=== PATIENT | male | born 1950 | race Caucasian/White ===

== ENCOUNTER 2017-01-05 17:09 | Emergency (ER) | payer BC ==
[2017-01-05 17:29] VITALS: BP 149/91
--- NOTE | 2017-01-05 18:27 | ED ---
Throat Pain/Nasal Congestion - HPI Summary HPI Summary: Patient presents to ED with CC of left eye conjunctiva redness, blurred vision, fixed pupil, halos around lights, tints of colors in the distances which are describes as halos and pain. He has had some worsening blurry vision for a few months and was seen by an analysis specialist in [facility] 3 weeks ago. He was tested negative for glaucoma, but diagnosed with a cataract. Then over the last 4 days , the blurry vision increased and now is having the previously mentioned symptoms. He is a [place] and notes to some intermittent hay fever reaction in the conjunctiva, but states this feels different. Otherwise healthy. - History of Current Complaint Chief Complaint: EDEyeProblem Time Seen by Provider: 01/05/17 17:35 Hx Obtained From: Patient Onset/Duration: Gradual Onset Severity: Worse Since: - 4 days ago Associated Signs And Symptoms: Positive: Negative Related History: Seasonal Allergies - Epiglottits Risk Factors Epiglottis Risk Factors: Negative - Allergies/Home Medications Allergies/Adverse Reactions: Allergies Allergy/AdvReac Type Severity Reaction Status Date / Time No Known Allergies Allergy Verified 01/05/17 17:30 PMH/Surg Hx/FS Hx/Imm Hx Previously Healthy: Yes - Immunization History Hx Pertussis Vaccination: No Immunizations Up to Date: Unable to Obtain/Confirm Infectious Disease History: Yes Infectious Disease History: Denies: Traveled Outside the [place] in Last 30 Days - Social History Occupation: Employed Full-time Lives: With Family Alcohol Use: UNABLE TO ASSESS, PT LEFT ED TO EY DOCTOR Hx Substance Use: No Substance Use Type: Reports: None, Other Substance Use Comment - Amount & Last Used: UNABLE TO ASSESS. PT LEFT FOR EYE APPOINTMENT Smoking Status (MU): Unknown if Ever Smoked Review of Systems Constitutional: Negative Positive: Photophobia, Blurred Vision, Erythema ENT: Negative Respiratory: Negative Genitourinary: Negative Positive: no symptoms reported, see HPI Skin: Negative Neurological: Negative All Other Systems Reviewed And Are Negative: Yes Physical Exam Triage Information Reviewed: Yes Vital Signs On Initial Exam: Initial Vitals Temp Pulse Resp BP Pulse Ox 98.4 F 62 18 149/91 96 01/05/17 17:24 01/05/17 17:24 01/05/17 17:24 01/05/17 17:24 01/05/17 17:24 Vital Signs Reviewed: Yes Appearance: Positive: Well-Appearing, No Pain Distress, Well-Nourished Skin: Positive: Warm, Skin Color Reflects Adequate Perfusion Head/Face: Positive: Normal Head/Face Inspection Eyes: Positive: Conjunctiva Inflammed, Other: - fixed pupil - miosis Neck: Positive: Supple, No Lymphadenopathy Respiratory/Lung Sounds: Positive: Clear to Auscultation, Breath Sounds Present Cardiovascular: Positive: Normal, RRR, Pulses are Symmetrical in both Upper and Lower Extremities Musculoskeletal: Positive: Normal, Strength/ROM Intact Neurological: Positive: Sensory/Motor Intact, Alert, Oriented to Person Place, Time Psychiatric: Positive: Normal AVPU Assessment: Alert - Donna Coma Scale Best Eye Response: 4 - Spontaneous Best Motor Response: 6 - Obeys Commands Best Verbal Response: 5 - Oriented Diagnostics - Vital Signs Vital Signs Temp Pulse Resp BP Pulse Ox 01/05/17 17:49 98.4 F 62 18 149/91 96 01/05/17 17:24 98.4 F 62 18 149/91 96 - Laboratory Lab Statement: Any lab studies that have been ordered have been reviewed, and results considered in the medical decision making process. EENT Course/Dx - Course Course Of Treatment: [facility] arrives from [facility]. Patient assessed for AACG. Left eye conjunctiva redness, blurred vision, fixed pupil, halos around lights, tints of colors in the distances which are describes as halos and pain. Spoke with Dr. Bran at 6pm who agreed to see patient at 6:30p in office. - Differential Diagnoses Differential Diagnoses: Conjunctivitis, Corneal Abrasion, Glaucoma - Diagnoses Provider Diagnoses: Cloudy vision Discharge - Discharge Plan Condition: Stable Disposition: HOME Referrals: Leo Bran MD [Medical Doctor] - Mingo Reilly MD [Primary Care Provider] - Additional Instructions: Follow up with Dr. Bran at 6:30p in his office.
== END 2017-01-05 18:08 | disposition home or self-care (01) ==
LOC: ED 17:09
DX: H53.8 Other visual disturbances (principal); H53.149 Visual discomfort, unspecified; L53.9 Erythematous condition, unspecified
CPT/HCPCS: 99281

== ENCOUNTER 2017-01-08 11:04 | Day surgery (SDC) | payer BC ==
[2017-01-08] MEDS ORDERED: Lidocaine 2% PF * 5 ML VIAL ONE (12:19)
[2017-01-08] MEDS ORDERED: Midazolam* 1 MG/ML 2 ML VIAL (2 MG) ONE ×2 (12:19→13:29)
[2017-01-08] MEDS ORDERED: Propofol* 10 MG/ML 20 ML BTL IV PUSH ONE (12:19)
[2017-01-08] MEDS ORDERED: fentaNYL* 50 MCG/ML 2 ML VIAL (100 MCG VIAL) ONE (12:19)
[2017-01-08] MEDS ORDERED: Buffered Lidocaine 0.9% SYRIN* 5 ML/SYR SYRINGE INTRADERM ONE (12:22)
[2017-01-08] MEDS ORDERED: Lidocaine 1% INJ* 10 MG/ML 30 ML SDV ONE (12:36)
[2017-01-08 14:07] VITALS: BP 129/74
--- NOTE | 2017-01-09 02:02 | OP ---
DATE OF OPERATION: 01/08/17 - [facility] DATE OF : 54 SURGEON: Leo Bran MD AUDIOLOGY ASSISTANT: None. ANESTHESIOLOGIST: Dr. Noriega ANESTHESIA: Retrobulbar and MAC. PRE-OP DIAGNOSES: Retained intraocular foreign body, iris root tear, corneal edema, cataract. POST-OP DIAGNOSES: Retained intraocular foreign body, iris root tear, corneal edema, cataract. OPERATIVE PROCEDURE: Removal of intraocular foreign body and repair of iris root tear. COMPLICATIONS: None. BLOOD LOSS: Minimal. DESCRIPTION OF PROCEDURE: The patient was brought to the operating room and received a small amount of intravenous sedation. A drop of tetracaine was placed into his left eye. The lower eyelid skin was cleaned with alcohol and approximately 2.5 cc of 1% lidocaine without epinephrine was administered through Mckeon retrobulbar needle into the muscle cone. The patient was subsequently prepped and draped in the usual sterile fashion for ophthalmic surgery and attention was directed to the left eye where a speculum was placed. Under the microscope, one could view a hazy outline of a foreign body in the inferonasal aspect of the angle in the anterior chamber embedded into the iris with some retroillumination of the iris root in that area. The cornea was hazy and a moderate nuclear sclerotic and posterior subcapsular cataract was present. A paracentesis was created at the 4:30 position and 0.1 cc of 1% preservative-free lidocaine was injected into the anterior chamber followed by DisCoVisc. A 2.75-mm keratome was used to create a triplanar clear corneal incision at approximately the 1:30 position. DisCoVisc on a cannula was used to try and manipulate the foreign body out of the angle, but it was encapsulated into place. A Utrata forceps was introduced through the wound across the anterior chamber and the foreign body was gently grabbed and pulled across the eye out through the wound. Care was taken to avoid traumatizing the iris as much as possible during this aspect of the procedure. Viscoelastic was then reintroduced into the anterior chamber to view the iris. A iris defect in the inferonasal quadrant was noted and measured approximately 2 mm in diameter beginning at the root of the iris. There was no further foreign body noted. It was decided that it would be prudent to try and close this defect and prevent polycoria with resultant monocular diplopia or glare. So, an inferonasal conjunctival peritomy was performed with gentle cauterization as needed. A crescent blade was used to create a V-shaped partial thickness scleral flap with its base at the limbus and the area of the iris defect. A # 30 gauge needle was introduced through the sclera under the flap into the angle. Through the wound, a double armed 9-0 Prolene with a straight needle was introduced. One needle was introduced sequentially through the central lip of the iris defect and into the lumen of the awaiting needle. The needle and 25 -gauge needle were removed peripherally as a unit. The 25-gauge needle was taken away and the Prolene needle was pulled through fully. This process was repeated with the other arm of the double-armed Prolene needle. The needles were trimmed and Prolene was tied such that it pulled the iris defect close to the iris root. The Prolene knot was trimmed short and the flap was used to cover the knot. Interrupted 10-0 nylon was used to close the flap. 6-0 gut was used to close the conjunctival peritomy. Attention was introduced into the eye again where viscoelastic was removed using irrigation and aspiration. BSS on a cannula was used to hydrate the corneal stroma and seal the wound. At the end of the case, the pupil was slightly teardrop peaked toward the area of repair and measured approximately 2.5 x 3 mm. The anterior chamber was deep and formed. The wound was watertight. The eye pressure appeared normal. The cornea was still somewhat hazy and the cataract remained. The conjunctiva was well closed with no active bleeding. The speculum was removed from the eye. Topical Maxitrol ointment was placed in the eye followed by a patch and a shield. The patient was sent to recovery room with postoperative instructions and followup appointment given. As per preoperative discussion, a plan to remove the cataract in the future was discussed. [id number]/[facility] #: [id number] JULISSA
[2017-01-09] MEDS ORDERED: Acetaminophen TAB* 325 MG PO PRN (05:00)
== END 2017-01-08 14:12 | disposition home or self-care (01) ==
LOC: OREAST 11:04
PROVIDERS: ATTEND Ophthalmology
DX: S05.52XA Penetrating wound with foreign body of left eyeball, initial encounter (principal); W45.8XXA Other foreign body or object entering through skin, initial encounter; Y92.9 Unspecified place or not applicable; I10 Essential (primary) hypertension; I35.0 Nonrheumatic aortic (valve) stenosis
CPT/HCPCS: 88300; J2001; J2250; J2704; J3010

== ENCOUNTER 2017-05-14 12:08 | Day surgery (SDC) | payer BC ==
[~2017-05-14 12:08] MED LIST: Acetaminophen TAB* 325 MG PO PRN; Buffered Lidocaine 0.9% SYRIN* 5 ML/SYR SYRINGE INTRADERM ONE; Cyclopentolate 1% OPTH.SOL* 2 ML BTL ONE; Ketorolac 0.5% OPHTH (NF) 0.5 % 5 ML BTL ONE; Lidocaine 1% MPF* 2 ML VIAL ONE; Neomycin/Polymy/Dex OPHTH.OIN* 3.5 GM ONE; Phenylephr/Ketorolac 1%/0.3% OPH DROP BTL ONE; Phenylephrine 2.5% OPTH.SOL* 2 ML BTL ONE; Tetracaine 0.5% OPTH.SOL 4 ML* 1 DROP BTL ONE; Tropicamide 1% OPTH.SOL* BTL ONE
[2017-05-14] MEDS ORDERED: fentaNYL* 50 MCG/ML 2 ML VIAL (100 MCG VIAL) ONE (12:40)
[2017-05-14] MEDS ORDERED: Midazolam* 1 MG/ML 2 ML VIAL (2 MG) ONE ×2 (12:40→13:19)
[2017-05-14 13:44] VITALS: BP 123/73
--- NOTE | 2017-05-15 01:37 | OP ---
DATE OF OPERATION: 05/14/17 - [facility] DATE OF : 54 SURGEON: Leo Bran MD GENERAL CLEANER: None. ANESTHESIOLOGIST: Yue Estes MD ANESTHESIA: Topical with intravenous sedation. PRE-OP DIAGNOSIS: Traumatic cataract, left eye, with traumatic pupil. POST-OP DIAGNOSIS: Traumatic cataract, left eye, with traumatic pupil. OPERATIVE PROCEDURE: Phacoemulsification and cataract extraction with posterior chamber intraocular lens implant, left eye. COMPLICATIONS: None. BLOOD LOSS: None. DESCRIPTION OF PROCEDURE: The patient was brought to the operating room and given a small amount of intravenous sedation and a drop of tetracaine to the left eye. A speculum was placed in the left eye after the patient was prepped and draped in the usual sterile fashion for ophthalmic surgery. Inspection revealed a traumatic cataract and irregular pupil. A paracentesis was created at the 5 o'clock position and 0.1 cc of 1% preservative-free lidocaine was injected into the anterior chamber followed by DisCoVisc. The eye was digitally stabilized while a 2.75-mm keratome was used to create a triplanar clear corneal incision at the 3 o'clock position. The pupil was moved appropriately with DisCoVisc to allow for a round continuous curvilinear capsulorrhexis, which was created with a cystotome and Utrata forceps. BSS on a cannula was used to hydrodissect the lens from the capsule. Phacoemulsification was performed in a bpuocf-hud-nthcexf technique to create 4 fragments, which were removed. Residual cortical material was removed with irrigation and aspiration. Omidria had been placed into the irrigating solution early in the case to help maintain pupil dilation. DisCoVisc was used to inflate the capsular bag and an [id number] 21.5 diopter lens was inserted into the capsular bag. The lens was positioned such that the haptics were not directed toward the area of previous iris surgery and viscoelastic was then removed using irrigation and aspiration. BSS on a cannula was used to hydrate the corneal stroma and seal the wound. At the end of the case, the lens was centered and stable. The pupil, although irregular, was centered and relatively round. The wound was watertight and the eye pressure was normal. The speculum was removed and topical Maxitrol ointment was placed on the surface of the eye. The eye was closed, patched, and shielded, and the patient was sent to the recovery room in stable condition with postop instructions and followup appointment given. [id number]/[facility] #: [id number] JULISSA
== END 2017-05-14 13:58 | disposition home or self-care (01) ==
LOC: OREAST 12:08
PROVIDERS: ATTEND Ophthalmology
DX: H26.102 Unspecified traumatic cataract, left eye (principal); Q23.1 Congenital insufficiency of aortic valve; E78.5 Hyperlipidemia, unspecified; N40.0 Benign prostatic hyperplasia without lower urinary tract symptoms
CPT/HCPCS: A9270-GY; C9447; J2250; J3010; V2632

== ENCOUNTER 2019-07-07 09:12 | Day surgery (SDC) | payer BC, MEDICARE ==
[2019-07-07] MEDS ORDERED: Midazolam* 1 MG/ML 2 ML VIAL (2 MG) ONE ×2 (10:26→10:53)
[2019-07-07 11:23] VITALS: BP 129/75
[2019-07-07] MEDS ORDERED: Ketorolac 0.5% OPHTH (NF) 0.5 % 5 ML BTL ONE (14:09)
[2019-07-07] MEDS ORDERED: Tropicamide 1% OPTH.SOL* BTL ONE (14:09)
[2019-07-07] MEDS ORDERED: Neomycin/Polymy/Dex OPHTH.OIN* 3.5 GM ONE (14:09)
[2019-07-07] MEDS ORDERED: Tetracaine 0.5% OPTH.SOL 4 ML* 1 DROP BTL ONE (14:09)
[2019-07-07] MEDS ORDERED: Lidocaine 1% MPF ** 5 ML VIAL ONE (14:09)
[2019-07-07] MEDS ORDERED: Phenylephrine OPHTH SOL 2.5%* 2 ML ONE (14:09)
[2019-07-07] MEDS ORDERED: Cyclopentolate 1% OPTH.SOL* 2 ML BTL ONE (14:09)
--- NOTE | 2019-07-07 15:35 | OP ---
DATE OF OPERATION: 07/07/[address] [facility] DATE OF : 54 SURGEON: Leo Bran MD PERSONAL SECURITY SPECIALIST: None. ANESTHESIA: Topical with intravenous sedation. PRE-OP DIAGNOSIS: Cataract with astigmatism, right eye. POST-OP DIAGNOSIS: Cataract with astigmatism, right eye. OPERATIVE PROCEDURE: Phacoemulsification and cataract extraction with posterior chamber toric intraocular lens implant, right eye. COMPLICATIONS: None. BLOOD LOSS: None. DESCRIPTION OF PROCEDURE: The patient was brought to the operating room and received intravenous sedation. A drop of tetracaine was placed in his right eye. The patient was prepped and draped in the usual sterile fashion for ophthalmic surgery and attention was directed to the right eye, where a speculum was placed. A paracentesis was created at the 11 o'clock position and 0.1 cc of 1% preservative- free lidocaine was injected into the anterior chamber followed by DisCoVisc. The eye was digitally stabilized while a 2.75 mm keratome was used to create a triplanar clear corneal incision at the 9 o'clock position. A continuous curvilinear capsulorrhexis was created using a cystotome and Utrata forceps. BSS on a cannula was used to hydrodissect the lens from the capsule. Phacoemulsification was performed in a lihkhw-ywd-saywcuu technique to create 4 fragments which were removed. Residual cortical material was removed with irrigation and aspiration. The capsular bag was polished. Provisc was placed into capsule and anterior chamber. The intraocular pressure was measured. Surface of the eye was lubricated. The ORA device was employed. An [id number] 23 diopter lens was chosen. The reticle on the ORA lens acts as placement. The lens was folded and inserted into the capsular bag. The lens was dialed to 177 degree axis. A Sinskey hook was placed with paracentesis to stabilize the lens while irrigation and aspiration were performed to remove viscoelastic from the eye. The Sinskey hook was removed. BSS on a cannula was used to hydrate the corneal stoma and seal the wound. At the end of the case, the pupil was round. The lens was centered, stable and axially aligned. The eye pressure appeared normal and the wound was watertight. The speculum was removed. Topical Maxitrol ointment was placed on the surface of the eye. The eye was closed, patched, and shielded and the patient was sent to the recovery room in stable condition with postoperative instructions and followup appointment given. [id number]/[facility] #: [id number] JULISSA
== END 2019-07-07 11:44 | disposition home or self-care (01) ==
LOC: OREAST 09:12
PROVIDERS: ATTEND Ophthalmology
DX: H25.041 Posterior subcapsular polar age-related cataract, right eye (principal); H52.201 Unspecified astigmatism, right eye; I10 Essential (primary) hypertension; K21.9 Gastro-esophageal reflux disease without esophagitis; Q23.1 Congenital insufficiency of aortic valve
CPT/HCPCS: A9270-GY; J2250; V2787

== ENCOUNTER 2021-11-06 08:43 | Observation (INO) ==
[~2021-11-06 08:43] MED LIST changes: -Acetaminophen TAB* 325 MG PO PRN; -Buffered Lidocaine 0.9% SYRIN* 5 ML/SYR SYRINGE INTRADERM ONE; +Buffered Lidocaine 1% SYRIN 1 ml INTRADERM ONE; -Cyclopentolate 1% OPTH.SOL* 2 ML BTL ONE; +GENTAMICIN ADULT IVPB ONE; +Gentamicin ADULT 160 MG in NS 0.9% 100 ml BAG 100 ML IVPB ONE; -Ketorolac 0.5% OPHTH (NF) 0.5 % 5 ML BTL ONE; +Lactated Ringers 1000 ml BAG 1,000 ML IV SCH; -Lidocaine 1% MPF* 2 ML VIAL ONE; +NS 0.9% IVPB ONE; +Naloxone 0.4 mg VIAL 0.4 mg/ml 1 ml VIAL IV PRN; -Neomycin/Polymy/Dex OPHTH.OIN* 3.5 GM ONE; +Ondansetron 4 mg VIAL 2 MG/ML 2 ml VIAL IV PRN; -Phenylephr/Ketorolac 1%/0.3% OPH DROP BTL ONE; -Phenylephrine 2.5% OPTH.SOL* 2 ML BTL ONE; -Tetracaine 0.5% OPTH.SOL 4 ML* 1 DROP BTL ONE; -Tropicamide 1% OPTH.SOL* BTL ONE; +cefTRIAXone 2 gm/50 mL D5W 2 GM/50 ML BAG IV ONE; +fentaNYL 100 mcg/2 ml 50 MCG/ML VIAL IV PRN; +oxyCODONE/Acetamin 5/325 mg TAB PO PRN
[2021-11-06] MEDS ORDERED: Dexmedetomidine 200 mcg/2 ml 2 ml VIAL (200 mcg) ONE (12:06)
[2021-11-06] MEDS ORDERED: Midazolam 5 mg/5 ml VIAL 1 mg/ml 5 ml VIAL (5 mg) ONE (12:06)
[2021-11-06] MEDS ORDERED: fentaNYL 250 mcg/5 ml 50 MCG/ML 5 ml VIAL (250 MCG) ONE (12:06)
[2021-11-06] MEDS ORDERED: Furosemide 20 mg/2 ml IV VIAL ONE (13:18)
[2021-11-06] MEDS: NS 0.9% 1000 ml BAG 1,000 ML IV SCH (23:00)
[2021-11-07 05:35] LABS: Calcium 8.6 mg/dL (8.6-10.3); Potassium 4.3 mmol/L (3.5-5.0); eGFR CKD-EPI 76.8 (>60)
[2021-11-07] MEDS: NS 0.9% 1000 ml BAG 1,000 ML IV SCH (05:35)
[2021-11-07 07:58] VITALS: BP 129/80
== END 2021-11-07 11:45 | disposition home or self-care (01) ==
LOC: OR 08:43 → AA 08:43 → SSU 16:43
PROVIDERS: ADMIT Urology; ATTEND Urology

== ENCOUNTER 2023-04-22 10:26 | Observation (INO) ==
[2023-04-22] MEDS ORDERED: NS 0.9% 1000 ml BAG 1,000 ML IV ONE (11:19)
[2023-04-22 12:21] LABS: ABS Eosinophils 0.1 10^3/uL (0.0-0.5); ABS Lymphocytes 0.7 10^3/uL (1.0-4.8); ABS Monocytes 0.6 10^3/uL (0.0-1.1); ABS Neutrophils 8.3 10^3/uL (1.5-7.6); ABS Nucleated RBC 0.01 10^3/ul; Eosinophil % 0.6 %; Hematocrit 42.5 % (38-53); Hemoglobin 14.7 g/dL (13.2-16.3); Lymphocyte % 7.6 %; Mean Corpuscular Hemoglobin 30.7 pg (27-33); Mean Corpuscular Hgb Conc 34.5 g/dL (31-36); Mean Platelet Volume 8.1 fL (7.5-11.2); Nucleated Red Blood Cells % 0.1 %/100WBC (0.0-0.8); Platelet Count 215 10^3/uL (150-450); Red Blood Count 4.78 10^6/uL (4.06-5.63); Red Cell Distribution Width 13.1 % (12-17); White Blood Count 9.7 10^3/uL (3.6-10.2)
[2023-04-22 12:49] LABS: High Sens Troponin Baseline 5 pg/mL (<20)
[2023-04-22 12:52] LABS: ALT 19 U/L (7-52); Albumin 4.5 g/dL (3.2-5.2); Albumin/Globulin Ratio 1.6 (1-3); Alkaline Phosphatase 78 U/L (35-149); Anion Gap 5 mmol/L (2-16); Blood Urea Nitrogen 21 mg/dL (6-24); CO2 Carbon Dioxide 28 mmol/L (22-32); Calcium 9.4 mg/dL (8.6-10.3); Chloride 104 mmol/L (101-111); Creatinine, Serum 1.19 mg/dL (0.67-1.17); Globulin 2.8 g/dL (2-4); Glucose 107 mg/dL (70-100); Magnesium 1.9 mg/dL (1.9-2.7); Sodium 137 mmol/L (135-145); Total Bilirubin 0.4 mg/dL (0.2-1.0); Total Protein 7.3 g/dL (6.4-8.9); eGFR CKD-EPI 65.7 (>60)
[2023-04-22] MEDS ORDERED: Iohexol 350 (CONTRAST) 500 ML MDV IV ONE (13:29)
[2023-04-22 14:40] LABS: Urine Appearance Clear; Urine Bilirubin Negative (Negative); Urine Blood Negative (Negative); Urine Color Yellow; Urine Glucose Negative (Negative); Urine Ketones Negative (Negative); Urine Nitrite Negative (Negative); Urine Protein Negative (Negative); Urine Specific Gravity 1.023 (1.002-1.030); Urine Urobilinogen Negative (Negative)
[2023-04-22 15:40] LABS: HDL Cholesterol 34.3 mg/dL
[2023-04-22 15:41] LABS: Potassium Redraw 4.9 mmol/L (3.5-5.0)
[2023-04-22] MEDS: Potassium & Sodium Phos 250 mg = 1 PACKET PO SCH (20:15)
[2023-04-22] MEDS ORDERED: Aspirin EC 81 mg TAB.EC (enteric coated) PO SCH (21:00)
[2023-04-23 07:23] LABS: Calcium 9.1 mg/dL (8.6-10.3); Creatinine, Serum 1.22 mg/dL (0.67-1.17); Magnesium 1.9 mg/dL (1.9-2.7); Phosphorus 2.7 mg/dL (2.5-5.0); Potassium 4.4 mmol/L (3.5-5.0); eGFR CKD-EPI 63.8 (>60)
[2023-04-23] MEDS: Potassium & Sodium Phos 250 mg = 1 PACKET PO SCH ×2 (08:50→14:42)
[2023-04-23 14:21] VITALS: BP 148/84
== END 2023-04-23 17:00 | disposition home or self-care (01) ==
LOC: EDHOLD 10:26 → ED 10:26 → MEDTELE 16:00
PROVIDERS: ADMIT Student in an Organized Health Care Education/Training Program; ATTEND Student in an Organized Health Care Education/Training Program